=== PATIENT | female | born 1970 | race Caucasian/White ===

== ENCOUNTER 2017-04-09 19:16 | Emergency (ER) | payer BC ==
[2017-04-09] MEDS ORDERED: HYDROcodone/ACETAMINOPHEN 1 EACH TABLET PO ONE (19:56)
[2017-04-09] MEDS ORDERED: PENICILLIN G BENZATHINE 2 ML SYRG IM ONE ×2 (19:57→20:02)
--- NOTE | 2017-04-09 20:01 | ERNOTE ---
ENT HPI Date of Service: 04/09/17 Presenting Symptoms: dental pain Time Seen by Provider: 04/09/17 19:48 Source: patient Exam Limitations: no limitations - Immun/Allergies/Home Medications Immunizations: IMMUNIZATION HX Immunizations Up to Date Yes History of Influenza Vaccine Yes Hx Pneumococcal Vaccination No Allergies/Adverse Reactions: Allergies Allergy/AdvReac Type Severity Reaction Status Date / Time Iodinated Contrast Media - Allergy Verified 04/09/17 19:33 Oral and Home Medications: HOME MEDICATIONS Butalb/Acetaminophen/Caffeine [Fioricet 50-300-40 mg Capsule] 1 each PO QID PRN 04/09/17 [Last Taken Unknown] HYDROcodone/ACETAMINOPHEN [Hydrocodon-Acetaminophen 5-325] 1 each PO TID PRN # 20 tablet 04/09/17 [Last Taken Unknown] Levothyroxine Sodium [Synthroid] 100 mcg PO DAILY 04/09/17 [Last Taken Unknown] Venlafaxine HCl [Effexor Xr] 150 mg PO HS 04/09/17 [Last Taken Unknown] Warfarin Sodium [Coumadin] 10 mg PO DAILY 04/09/17 [Last Taken Unknown] - History of Present Illness Narrative: 46-year-old female presents to the emergency room for dental pain. States that it started 2 days ago and it has progressively gotten worse. she has swelling to her cheek. Date (Duration): 04/09/17 Severity: Present: moderate ENT Location: Present: dental Prearrival Treatment: Present: no prearrival treatment Modifying Factors - Improves: Reports: nothing Modifying Factors - Worsens: Reports: nothing Associated Symptoms - ENT: Reports: facial pain/swelling, tooth pain. Denies: fever, cough Review of Systems - Review of Systems Constitutional: Present: See HPI, chills. Absent: fever, fatigue EYE: Present: see HPI ENT: Present: See HPI Respiratory: Present: no symptoms reported Cardiology: Present: no symptoms reported Gastrointestinal/Abdominal: Present: no symptoms reported Genitourinary: Present: no symptoms reported Musculoskeletal: Present: no symptoms reported Skin: Present: no symptoms reported Neurological: Present: no symptoms reported Endocrine: Present: no symptoms reported Hematologic/Lymphatic: Present: no symptoms reported Psych: Present: no symptoms reported - Patient's Past Medical History Patient History - Medical: Depression Patient History - Cardiac/Respiratory: Arrhythmias, Valvular Heart Disease, Other Additional Info: AVR 2003 Patient History - Cancer: No Hx of Cancer Patient History - Surgical Procedures: Other - avr Patient History - Other: None - Social History Living Situations: home Psych History: Hx of Depression Smoking Status: Never smoker Alcohol Use: none Drug Use: none - Immunizations Immunizations Up to Date: Yes Hx Pneumococcal Vaccination: No History of Influenza Vaccine: Yes Physical Exam - Physical Exam Narrative: patients right cheek swollen and tender. denita has 3 molars on the right side of her mouth that all have carries in them and broken teeth. General Appearance: Present: wd/wn, alert, no apparent distress Eye Exam: Normal inspection: bilateral Ears, Nose, Throat: Present: other Neck: Present: normal inspection, nontender Respiratory: Present: no respiratory distress, normal breath sounds, lungs clear Cardiovascular/Chest: Present: regular rate, rhythm, normal peripheral pulses, systolic murmur - normal for patient. Absent: irregularly irregular Gastrointestinal/Abdominal: Present: normal bowel sounds, soft Back Exam: Present: normal inspection, normal range of motion, no CVA tenderness , no vertebral tenderness Extremity Exam: Present: normal inspection, non-tender, normal range of motion, no edema Skin Exam: Present: normal color, warm/dry Lymphatic Exam: Present: no adenopathy ED Progress - Vital Signs Patient's Vital Signs:: I have reviewed the patient's vital signs. Vital Signs: Vital Signs 04/09/17 19:25 Temperature 37.6 C H Pulse Rate 79 Respiratory 16 Rate Blood Pressure 125/77 O2 Sat by Pulse 98 Oximetry - Progress/Reassessment Chief Complaint: Dental Problem Progress:: Improved Departure Clinical Impression: Dental abscess - Departure Disposition: Home Follow Up Needed Condition: Stable Instructions: Dental Caries, Dental Abscess, [id number] Additional Instructions: Continue previous home medications as directed. Please follow-up with your dentist tomorrow. Return to emergency room if symptoms persist or become worse. Prescriptions: HYDROcodone/ACETAMINOPHEN [Hydrocodon-Acetaminophen 5-325] 1 each PO TID PRN # 20 tablet PRN Reason: Pain
[2017-04-09] MEDS ORDERED: HYDROcodone/ACETAMINOPHEN 1 EACH TABLET ONE (20:04)
[2017-04-09 20:45] VITALS: BP 133/78
== END 2017-04-09 20:51 | disposition home or self-care (01) ==
LOC: ER 19:16
DX: K04.7 Periapical abscess without sinus (principal); I38 Endocarditis, valve unspecified